=== PATIENT | male | born 1935 | race Asian ===

== ENCOUNTER 2016-09-23 10:08 | Emergency (ER) | payer MEDICARE, OTHER ==
[~2016-09-23] VITALS: Ht 167.6 cm; Wt 86.4 kg
[2016-09-23] MEDS ORDERED: PERTUSS(ACELL),DIPH,TET VAC/PF 0.5 ML VIAL IM ONE (11:45)
[2016-09-23] MEDS ORDERED: LIDOCAINE HCL BUFFERED 1% 20 ML VIAL INJ ONE (12:00)
[2016-09-23 14:44] VITALS: BP 159/89
== END 2016-09-23 14:44 | disposition home or self-care (01) ==
LOC: EMS 10:11
DX: S61.412A Laceration without foreign body of left hand, initial encounter (principal); I51.9 Heart disease, unspecified; W26.0XXA Contact with knife, initial encounter; Y93.89 Activity, other specified; Y99.8 Other external cause status; Y92.89 Other specified places as the place of occurrence of the external cause
CPT/HCPCS: 12002; 90471; 90715; 99283; J3490

== ENCOUNTER 2016-09-25 13:44 | Emergency (ER) | payer MEDICARE, OTHER ==
[~2016-09-25] VITALS: Ht 167.6 cm; Wt 73.6 kg
[2016-09-25] MEDS ORDERED: CEPH500 PO (14:45)
[2016-09-25] MEDS ORDERED: HYDR-309 PO (14:45)
[2016-09-25 17:04] VITALS: BP 147/89
[2016-09-25] MEDS ORDERED: BACITRACIN 0.9 GM PACKET OINTMENT TP ONE (17:45)
== END 2016-09-25 17:57 | disposition home or self-care (01) ==
LOC: EMS 13:48
DX: Z48.01 Encounter for change or removal of surgical wound dressing (principal); R03.0 Elevated blood-pressure reading, without diagnosis of hypertension; I51.9 Heart disease, unspecified
CPT/HCPCS: 99283

== ENCOUNTER 2016-10-01 08:01 | Emergency (ER) | payer MEDICARE, OTHER ==
[~2016-10-01] VITALS: Ht 167.6 cm; Wt 73.0 kg
[~2016-10-01 08:01] MED LIST: CEPH500 PO; HYDR-309 PO
[2016-10-01 08:09] VITALS: BP 158/92
== END 2016-10-01 08:58 | disposition home or self-care (01) ==
LOC: EMS 08:02
DX: Z48.02 Encounter for removal of sutures (principal)
CPT/HCPCS: 99283